=== PATIENT | male | born 1990 | race African-American/Black ===

== ENCOUNTER 2019-04-08 21:58 | Emergency (ER) | payer SELFPAY | END 2019-04-08 23:56 | disposition home or self-care (01) | LOC: ERS 21:58 | DX: J02.9 Acute pharyngitis, unspecified (principal); F31.9 Bipolar disorder, unspecified; F17.210 Nicotine dependence, cigarettes, uncomplicated | CPT/HCPCS: 87081; 87430; 99283 ==

== ENCOUNTER 2019-06-23 09:18 | Emergency (ER) | payer SELFPAY | END 2019-06-23 09:36 | disposition home or self-care (01) | LOC: ERS 09:18 | DX: A63.0 Anogenital (venereal) warts (principal); F31.9 Bipolar disorder, unspecified; F17.210 Nicotine dependence, cigarettes, uncomplicated | CPT/HCPCS: 99281 ==

== ENCOUNTER 2020-01-29 08:01 | Emergency (ER) | payer SELFPAY ==
[2020-01-29] MEDS ORDERED: Ondansetron ODT 4 MG TAB ONE (08:18)
[2020-01-29] MEDS ORDERED: Ketorolac Tromethamine 30 MG/ML VIAL ONE (08:18)
--- NOTE | 2020-01-29 08:30 | RAD ---
EXAM: Chest PA and lateral: HISTORY: Pain x2 days. COMPARISON: None FINDINGS: Heart: Normal cardiac silhouette Aorta: Unremarkable Pulmonary vessels: Normal Costophrenic angles: Costophrenic angles are clear. Lungs: No consolidation or masses. Pneumothorax: No pneumothorax Osseous structures: No osseous abnormalities IMPRESSION: No acute cardiopulmonary process.
[2020-01-29 20:20] LABS: SARS-CoV-2 MS2 Positive; SARS-CoV-2 N Gene Positive; SARS-CoV-2 S Gene Positive; SARS-CoV-2 by NAA DETECTED (NotDetected); SARS-CoV-2 orf1ab Positive
== END 2020-01-29 09:49 | disposition home or self-care (01) ==
LOC: ERS 08:01
DX: U07.1 COVID-19 (principal); J06.9 Acute upper respiratory infection, unspecified; F17.210 Nicotine dependence, cigarettes, uncomplicated
CPT/HCPCS: 71046; 87635; 96372; J1885; Q0162; U0003